=== PATIENT | female | born 1965 | race American Indian/Alaskan Native ===

== ENCOUNTER 2018-07-18 20:35 | Inpatient (IN) | payer BC ==
[2018-07-18 20:47] VITALS: BMI 36.3
[2018-07-18 21:31] LABS: BASO # 0.03 K/mm3 (0.0-2.0); BASO % 0.6 % (0.0-3.0); EOS # 0.2 (0.0-0.7); EOS % 3.4 % (1.5-5.0); HEMOGLOBIN 13.3 g/dL (12.0-16.0); LYMPH % 41.9 % (22.0-35.0); MEAN CELL VOLUME 95.9 fl (80.0-105.0); MEAN CORPUSCULAR HGB CONC 33.4 g/dl (31.0-37.0); MEAN PLATELET VOLUME 10.2 fl (7.0-11.0); MONO # 0.3 (0.1-0.6); MONO % 6.9 % (1.0-6.0); RBC 4.15 10^6/uL (3.5-6.1); RED CELL DISTRIBUTION WIDTH 13.2 % (11.5-14.5); WHITE BLOOD COUNT 4.8 10^3/uL (4.5-11.0)
[2018-07-18 21:48] LABS: ALB/GLOB RATIO 1.3 (1.1-1.8); ALBUMIN 4.2 g/dL (3.0-4.8); ALT/SGPT 18 U/L (7-56); AST/SGOT 24 U/L (14-36); BLOOD UREA NITROGEN 15 mg/dL (7-21); CALCIUM 9.3 mg/dL (8.4-10.5); GFR NON-AFRICAN AMERICAN > 60
[2018-07-18] MEDS ORDERED: Morphine 4 mg/ml ISec IVP STA ×2 (21:49→23:54)
--- NOTE | 2018-07-18 23:04 | ED PDOC ---
Arrival/HPI - General Chief Complaint: Lower Extremity Problem/Injury Time Seen by Provider: 07/18/18 20:36 Historian: Patient - History of Present Illness Narrative History of Present Illness (Text): 07/18/18 23:01 52 yo F with no significant PMH, reports slipping and falling outside today 1 hr uniform force [employer], sustaining injury of the R ankle. Patient now complains of pain and swelling; can not bear weight on ankle. Otherwise: (-) knee pain, (-) other injury, (-) head injury, (-) LOC, (-) neck/back pain, (-) other extremity injury. 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 - Anesthesia Hx Anesthesia: Yes Hx Anesthesia Reactions: No Family/Social History Family/Social History: No Known Family HX Smoking Status: Never Smoked Hx Alcohol Use: No Hx Substance Use: No Allergies/Home Meds Allergies/Adverse Reactions: Allergies No Known Allergies Allergy (Verified 07/18/18 20:56) Review of Systems - Review of Systems Constitutional: absent: Fatigue, Fevers Respiratory: absent: SOB, Cough Cardiovascular: absent: Chest Pain, Palpitations Gastrointestinal: absent: Abdominal Pain, Nausea, Vomiting Genitourinary Female: absent: Dysuria, Frequency, Hematuria Musculoskeletal: Arthralgias, Joint Swelling. absent: Back Pain, Neck Pain Skin: absent: Rash, Pruritis, Skin Lesions Neurological: absent: Headache, Dizziness Physical Exam Vital Signs Temp Pulse Resp BP Pulse Ox 07/18/18 20:56 97.9 F 56 L 18 100/50 L 99 Temperature: Afebrile Blood Pressure: Normal Pulse: Regular Respiratory Rate: Normal Appearance: Positive for: Well-Appearing, Non-Toxic, Comfortable Pain Distress: Moderate Mental Status: Positive for: Alert and Oriented X 3 - Systems Exam Head: Present: Atraumatic, Normocephalic Pupils: Present: PERRL Extroacular Muscles: Present: EOMI Conjunctiva: Present: Normal Mouth: Present: Moist Mucous Membranes Neck: Present: Normal Range of Motion Respiratory/Chest: Present: Clear to Auscultation, Good Air Exchange. No: R espiratory Distress, Accessory Muscle Use Cardiovascular: Present: Regular Rate and Rhythm, Normal S1, S2. No: Murmurs Abdomen: No: Tenderness, Distention, Peritoneal Signs Back: Present: Normal Inspection Upper Extremity: Present: Normal Inspection. No: Cyanosis, Edema Lower Extremity: Present: NORMAL PULSES, Tenderness (R ankle : +moderate tenderness and edema with limited ROM secondary to pain, (-) tenderness to the achilles tendon. R foot : (-) tenderness or swelling.), Neurovascularly Intact, Capillary Refill < 2 s Neurological: Present: GCS=15, CN II-XII Intact, Speech Normal, Motor Func Grossly Intact, Normal Sensory Function Skin: Present: Warm, Dry, Normal Color. No: Rashes Psychiatric: Present: Alert, Oriented x 3, Normal Insight, Normal Concentration Medical Decision Making ED Course and Treatment: 07/18/18 23:04 Plan : - XR R ankle and foot - IV - Labs - toradol IV XR R ankle / R foot : +trimalleolar fracture, no dislocation, as read by [facility]IA. EKG : NSR at 62 bpm, no acute ST changes, as read by SAMIA CXR : NAD, as read by PA Patient still c/o pain, she returned from XR. Morphine IV and zofran IV given. X-ray results discussed with the patient in great detail. Orthoglass posterior short leg and sugra tong splint applied by SAMIA. Neurovascular intact post splint application. Patient states that she has seen Dr. Gonzalez in the past and is requesting that he be consulted for ortho. Case d/w Dr. Gonzalez, request that the patient be admitted and he will plan to take the patient to the OR in the AM. He request that the patient be admitted under the medical service so that she maybe medically cleared. Case d/w Dr. Vail, agrees with plan to admit. Bridge orders and consults placed. Patient notified of needs for admission and possible OR tomorrow, which she agrees to. She states that she agrees with the plan and for further care. I have given the patient opportunity to ask any additional questions. - Lab Interpretations Lab Results: Total Bilirubin 0.3 mg/dL (0.2-1.3) 07/18/18 21:25 AST 24 U/L (14-36) 07/18/18 21:25 ALT 18 U/L (7-56) 07/18/18 21:25 Alkaline Phosphatase 71 U/L (38-126) 07/18/18 21:25 Total Protein 7.3 g/dL (5.8-8.3) 07/18/18 21:25 Albumin 4.2 g/dL (3.0-4.8) 07/18/18 21:25 Globulin 3.1 gm/dL 07/18/18 21:25 Albumin/Globulin Ratio 1.3 (1.1-1.8) 07/18/18 21:25 - RAD Interpretation Radiology Orders: 07/18/18 21:15 ANKLE RIGHT 3 VIEWS ROUTINE [RAD] Stat FOOT RIGHT 3 VIEWS ROUTINE [RAD] Stat 07/18/18 22:25 CHEST PORTABLE [RAD] Stat - Medication Orders Current Medication Orders: Discontinued Medications Ketorolac Tromethamine (Toradol) 30 mg IVP STAT STA Stop: 07/18/18 21:16 Last Admin: 07/18/18 21:26 Dose: 30 mg MAR Pain Assessment Document 07/18/18 21:26 (Rec: 07/18/18 21:29 [facility]-[email or web address]) Pain Reassessment Is this a pain reassessment? No Sleep Is patient sleeping during reassessment? No Presence of Pain Presence of Pain Yes Pain Scale Used Protocol: [facility] Pain Scale Used Numeric Location Left, Right or Bilateral Right Pain Location Body Site Ankle Description Description Constant Intensity of Pain at present 10 IVP Administration Document 07/18/18 21:26 RC (Rec: 07/18/18 21:29 [facility]-[email or web address]) Charges for Administration # of IVP Administrations 1 Morphine Sulfate (Morphine) 4 mg IVP STAT STA Stop: 07/18/18 21:50 Last Admin: 07/18/18 21:58 Dose: 4 mg MAR Pain Assessment Document 07/18/18 21:58 RC (Rec: 07/18/18 22:04 [facility]-20) Pain Reassessment Is this a pain reassessment? No Sleep Is patient sleeping during reassessment? No Presence of Pain Presence of Pain Yes Pain Scale Used Protocol: [facility] Pain Scale Used Numeric Location Left, Right or Bilateral Right Description Description Constant Intensity of Pain at present 9 Acceptable Level of Pain 3 Pain Behavior Crying Aggravating Factors Changing Position IVP Administration Document 07/18/18 21:58 RC (Rec: 07/18/18 22:04 [facility]-20) Charges for Administration # of IVP Administrations 1 Ondansetron HCl (Zofran Inj) 4 mg IVP STAT STA Stop: 07/18/18 21:50 Last Admin: 07/18/18 21:58 Dose: 4 mg IVP Administration Document 07/18/18 21:58 (Rec: 07/18/18 21:58 [facility]-[email or web address]) Charges for Administration # of IVP Administrations 1 - PA / SHIPPING/RECEIVING MANAGER / Resident Statement MD/DO has reviewed & agrees with the documentation as recorded. Disposition/Present on Arrival - Present on Arrival Any Indicators Present on Arrival: No History of DVT/PE: No History of Uncontrolled Diabetes: No Urinary Catheter: No History of Decub. Ulcer: No History Surgical Site Infection Following: None - Disposition Have Diagnosis and Disposition been Completed?: Yes Diagnosis: Trimalleolar fracture of right ankle Disposition: HOSPITALIZED Disposition Time: 22:30 Patient Plan: Admission Patient Problems: Current Active Problems Problem Status Onset Trimalleolar fracture of right ankle Acute Condition: STABLE
[2018-07-18 23:55] LABS: INR 1.08; PARTIAL THROMBOPLASTIN TIME 34.2 Seconds (26.9-38.3)
[2018-07-19] MEDS ORDERED: Pneumococcal 23-Valent Vaccine IM ONE (00:57)
[2018-07-19] MEDS ORDERED: Influenza Vaccine 60 mcg/0.5 mL SYR (4YR UP) IM ONE (00:57)
[2018-07-19] MEDS: Dextrose 5%/0.45% NS 1,000 ML IV SCH ×3 (01:38→20:03)
[2018-07-19] MEDS: Oxycodone/Acetaminophen 5/325 mg Tab PO PRN (02:19)
[2018-07-19] MEDS ORDERED: HYDROmorphone 1 mg/ml ISec SC PRN (07:07)
[2018-07-19] MEDS ORDERED: HYDROmorphone 1 mg/ml ISec IVP STA (07:30)
[2018-07-19] MEDS ORDERED: HYDROmorphone 0.5 mg/0.5 ml ISec IVP PRN (08:19)
--- NOTE | 2018-07-19 08:54 | RAD ---
Date of service: 07/18/2018 HISTORY: for OR COMPARISON: No prior. FINDINGS: LUNGS: No active pulmonary disease. PLEURA: No significant pleural effusion identified, no pneumothorax apparent. CARDIOVASCULAR: No aortic atherosclerotic calcification present. Normal cardiac size. No pulmonary vascular congestion. OSSEOUS STRUCTURES: No significant abnormalities. VISUALIZED UPPER ABDOMEN: Normal. OTHER FINDINGS: None. IMPRESSION: No active disease.
--- NOTE | 2018-07-19 09:37 | RAD ---
Date of service: 07/18/2018 PROCEDURE: Right Foot Radiographs. HISTORY: pain COMPARISON: None. FINDINGS: BONES: Fracture medial malleolus. Fracture distal fibula. See radiographs right ankle. No other fracture identified. JOINTS: Normal. SOFT TISSUES: Normal. OTHER FINDINGS: None. IMPRESSION: Fracture medial malleolus and distal fibula. No additional fracture.
--- NOTE | 2018-07-19 09:38 | RAD ---
Date of service: 07/18/2018 PROCEDURE: Right Ankle Radiographs. HISTORY: pain COMPARISON: None available. FINDINGS: BONES: Minimally displaced oblique fracture distal fibula at the level of the plafond. Minimally displaced medial malleolar fracture. No other fracture identified. JOINTS: The talar dome is smooth. There is mild widening of the ankle mortise. This may indicate tibial fibular ligamentous disruption. SOFT TISSUES: Circumferential soft tissue swelling is noted. OTHER FINDINGS: None. IMPRESSION: Fracture medial malleolus and distal fibula. Mild widening of ankle mortise.
[2018-07-19] MEDS: Levothyroxine 50 MCG TAB PO SCH (10:00)
[2018-07-19] MEDS ORDERED: Ergocalciferol 50,000 Intl Units Cap PO SCH (10:00)
--- NOTE | 2018-07-19 10:41 | CARD ---
APPROVED REPORT Date of service: 07/18/2018 EKG Measurement Heart [id number] <Conclusion> Normal sinus rhythm Normal ECG
[2018-07-19 10:42] VITALS: RESP 18
[2018-07-19] MEDS ORDERED: Bupivacaine 0.5% 50 ML IJ ONE (10:54)
[2018-07-19] MEDS ORDERED: Succinylcholine 200 mg/10 ml Inj IV ONE (10:58)
[2018-07-19] MEDS ORDERED: Propofol 10 mg/ml Inj (20 ML) ONE (10:58)
[2018-07-19] MEDS ORDERED: Midazolam 2 MG/2 ML VIAL ONE (10:59)
[2018-07-19] MEDS ORDERED: Sevoflurane - Inhalation Anesthetic Liq (250 ml) ONE (11:00)
[2018-07-19] MEDS ORDERED: Desflurane Inhalation Anesthetic Liq (240 ml) ONE (11:00)
[2018-07-19] MEDS ORDERED: Rocuronium 10 mg/ml (5 ml) ONE (11:40)
--- NOTE | 2018-07-19 11:40 | CON ---
DATE: 07/19/2018 ORTHOPEDIC CONSULT REPORT LOCATION: The patient is a 52-year-old female, in room 566, bed 1. HISTORY OF PRESENT ILLNESS: She was admitted last night 07/18/2018, today's date is 07/19/2018, for slipped on the ice and sustained a displaced bimalleolar fracture right ankle, will need surgical treatment for ORIF, put a plate on the fibula and screws in the medial malleolus. The wound is closed, we are going to try to do the surgery today and the patient con go home in a couple of days with the walker and not put weight on for 6 weeks. FINAL DIAGNOSES: Displaced bimalleolar fracture right ankle and told of_ risks and benefit of surgery. Ming Gonzalez DO MTDD
[2018-07-19 12:03] LABS: URINE BILIRUBIN NEGATIVE (NEGATIVE); URINE BLOOD NEGATIVE (NEGATIVE); URINE GLUCOSE (UA) NEGATIVE (NEGATIVE); URINE LEUKOCYTE ESTERASE NEGATIVE Leu/uL (NEGATIVE); URINE PROTEIN TRACE mg/dL (<30 mg/dL); URINE UROBILINOGEN 0.2 E.U./dL (<1 E.U./dL)
[2018-07-19] MEDS ORDERED: Neostigmine Methylsulfate 3mg/3ml Syringe IV ONE ×2 (12:08→12:12)
[2018-07-19 12:13] LABS: URINE APPEARANCE CLEAR (CLEAR); URINE COLOR YELLOW (YELLOW)
[2018-07-19 12:18] LABS: URINE BACTERIA MANY /hpf; URINE RBC 0 - 2 /hpf (0-2)
[2018-07-19 12:19] LABS: URINE AMORPHOUS SEDIMENT FEW /hpf; URINE FINE GRANULAR CAST 0 - 2 /hpf; URINE HYALINE CAST 0 - 2 /hpf
[2018-07-19] MEDS ORDERED: Vancomycin 1 g Inj ONE (12:56)
[2018-07-19] MEDS ORDERED: HYDROmorphone 1 mg/ml ISec IVP PRN (13:23)
[2018-07-19] MEDS ORDERED: Lactated Ringer's 1,000 ML IV SCH (13:30)
[2018-07-19] MEDS ORDERED: Esmolol 100 mg/10ml Inj IV ONE (14:19)
[2018-07-19] MEDS ORDERED: Oxycodone/Acetaminophen 5/325 mg Tab PO PRN (15:07)
[2018-07-19] MEDS ORDERED: HYDROmorphone 1 mg/ml ISec IVP ONE ×4 (15:25→16:10)
[2018-07-19] MEDS ORDERED: HYDROmorphone 1 mg/ml ISec ONE ×3 (15:41→16:07)
--- NOTE | 2018-07-19 16:26 | RAD ---
Date of service: 07/19/2018 PROCEDURE: Fluoroscopy up to 1 hr HISTORY: O.R.I.F. OF RIGHT ANKLE FX. COMPARISON: TECHNIQUE: 76.3 sec fluoro time. Cumulative dose 6.72 mGy. Five images were submitted FINDINGS: There has been internal fixation of the trimalleolar fracture. There is anatomic alignment IMPRESSION: As above
[2018-07-19 19:42] LABS: IRON 92 ug/dL (45-180)
[2018-07-19 19:43] LABS: HDL CHOLESTEROL 45 mg/dL (29-60)
[2018-07-19 19:52] LABS: % IRON SATURATION 29 % (20-55); TOTAL IRON BINDING CAPACITY 320 ug/dL (265-497)
[2018-07-19 19:53] LABS: LDL CHOLESTEROL 134 mg/dL (0-129)
--- NOTE | 2018-07-19 20:44 | CP.PCM.PN ---
<Fatoumata Enriquez - Last Filed: 07/19/18 20:47> Subjective - Date & Time of Evaluation Date of Evaluation: 07/19/18 Time of Evaluation: 20:41 - Subjective Subjective: PGY1 House Doctor: Patient here for Trimalleolar fracture of right ankle; s/p Right ankle ORIF POD- [address] Gonzalez. EKG QTc = 442. Per nurse, Patient was complaining of nausea, but per Nurse, there is no PRN zofran ordered. Ordered zofran 4mg IVP stat x 1 dose. Objective - Vital Signs/Intake and Output Vital Signs (last 24 hours): Temp Pulse Resp BP Pulse Ox 97.6 F 77 18 153/76 H 96 07/19/18 16:32 07/19/18 16:32 07/19/18 16:32 07/19/18 16:32 07/19/18 16:32 Intake and Output: 07/19/18 07/20/18 18:59 06:59 Intake Total 0 Balance 0 - Medications Medications: Current Medications Acetaminophen (Tylenol 325mg Tab) 650 mg PO Q4H PRN PRN Reason: Fever >100.4 F Aspirin (Ecotrin) 81 mg PO DAILY [facility], [facility]1983 Ergocalciferol (Drisdol 50,000 Intl Units Cap) 1 cap PO QWK [facility]1983 Last Admin: 07/19/18 10:00 Dose: Not Given Famotidine (Pepcid) 40 mg PO HS [facility]1983 Hydromorphone HCl (Dilaudid) 0.5 mg IVP Q4H PRN PRN Reason: Pain, Mild (1-3) Hydromorphone HCl (Dilaudid) 1 mg IVP Q4H PRN PRN Reason: Pain, severe (8-10) Dextrose/Sodium Chloride (Dextrose 5%/0.45% Ns 1000 Ml) 1,000 mls @ 100 mls/hr IV .Q10H [facility]1983 Last Admin: 07/19/18 20:03 Dose: 100 mls/hr Levothyroxine Sodium (Synthroid) 50 mcg PO ACB [facility]1983 Last Admin: 07/19/18 10:00 Dose: Not Given Ondansetron HCl (Zofran Inj) 4 mg IVP ONCE PRN PRN Reason: Nausea/Vomiting Ondansetron HCl (Zofran Inj) 4 mg IVP STAT STA Stop: 07/19/18 20:41 Oxycodone/Acetaminophen (Percocet 5/325 Mg Tab) 1 tab PO Q4H PRN PRN Reason: Pain, moderate (4-7) Stop: 07/22/18 01:25 Last Admin: 07/19/18 02:19 Dose: 1 tab Oxycodone/Acetaminophen (Percocet 5/325 Mg Tab) 2 tab PO Q4H PRN PRN Reason: Pain, moderate (4-7) Stop: 07/22/18 15:08 - Labs Labs: 07/18/18 21:25 07/18/18 21:25 PT 12.0 SECONDS (9.4-12.5) 07/18/18 23:31 INR 1.08 07/18/18 23:31 APTT 34.2 Seconds (26.9-38.3) 07/18/18 23:31 <Renuka Santana - Last Filed: 07/20/18 06:10> Objective - Vital Signs/Intake and Output Vital Signs (last 24 hours): Temp Pulse Resp BP Pulse Ox 97.6 F 77 18 153/76 H 96 07/19/18 16:32 07/19/18 16:32 07/19/18 16:32 07/19/18 16:32 07/19/18 16:32 Intake and Output: 07/19/18 07/20/18 18:59 06:59 Intake Total 0 480 Output Total 600 Balance 0 -120 - Medications Medications: Current Medications Acetaminophen (Tylenol 325mg Tab) 650 mg PO Q4H PRN PRN Reason: Fever >100.4 F Aspirin (Ecotrin) 81 mg PO DAILY [facility], [facility]1983 Ergocalciferol (Drisdol 50,000 Intl Units Cap) 1 cap PO QWK [facility]1983 Last Admin: 07/19/18 10:00 Dose: Not Given Famotidine (Pepcid) 40 mg PO HS [facility] Last Admin: 07/19/18 21:34 Dose: Not Given Hydromorphone HCl (Dilaudid) 0.5 mg IVP Q4H PRN PRN Reason: Pain, Mild (1-3) Hydromorphone HCl (Dilaudid) 1 mg IVP Q4H PRN PRN Reason: Pain, severe (8-10) Last Admin: 07/20/18 05:47 Dose: 1 mg Dextrose/Sodium Chloride (Dextrose 5%/0.45% Ns 1000 Ml) 1,000 mls @ 100 mls/hr IV .Q10H MELANIE Last Admin: 07/20/18 05:46 Dose: 100 mls/hr Levothyroxine Sodium (Synthroid) 50 mcg PO ACB MELANIE Last Admin: 07/19/18 10:00 Dose: Not Given Ondansetron HCl (Zofran Inj) 4 mg IVP ONCE PRN PRN Reason: Nausea/Vomiting Oxycodone/Acetaminophen (Percocet 5/325 Mg Tab) 1 tab PO Q4H PRN PRN Reason: Pain, moderate (4-7) Stop: 07/22/18 01:25 Last Admin: 07/19/18 02:19 Dose: 1 tab Oxycodone/Acetaminophen (Percocet 5/325 Mg Tab) 2 tab PO Q4H PRN PRN Reason: Pain, moderate (4-7) Stop: 07/22/18 15:08 - Labs Labs: 07/18/18 21:25 07/18/18 21:25 PT 12.0 SECONDS (9.4-12.5) 07/18/18 23:31 INR 1.08 07/18/18 23:31 APTT 34.2 Seconds (26.9-38.3) 07/18/18 23:31 Attending/Attestation - Attestation I have personally seen and examined this patient.: No I have fully participated in the care of the patient.: No I have reviewed all pertinent clinical information, including history, physical exam and plan: No
[2018-07-19] MEDS: HYDROmorphone 1 mg/ml ISec IVP PRN (23:18)
[2018-07-20] MEDS ORDERED: POLYETHYLENE GLYCOL 3350 17 GM/Dose PACKET PO ONE (00:04)
[2018-07-20] MEDS: Dextrose 5%/0.45% NS 1,000 ML IV SCH (05:46)
[2018-07-20] MEDS: HYDROmorphone 1 mg/ml ISec IVP PRN ×2 (05:47→10:07)
[2018-07-20 07:08] LABS: HEMOGLOBIN 12.1 g/dL (12.0-16.0); MEAN CELL VOLUME 95.6 fl (80.0-105.0); MEAN CORPUSCULAR HEMOGLOBIN 31.4 pg (25.0-35.0); MEAN CORPUSCULAR HGB CONC 32.9 g/dl (31.0-37.0); MEAN PLATELET VOLUME 9.6 fl (7.0-11.0); RBC 3.85 10^6/uL (3.5-6.1); RED CELL DISTRIBUTION WIDTH 13.1 % (11.5-14.5); WHITE BLOOD COUNT 9.8 10^3/uL (4.5-11.0)
[2018-07-20 07:13] LABS: BLOOD UREA NITROGEN 12 mg/dL (7-21); CALCIUM 8.8 mg/dL (8.4-10.5); GFR NON-AFRICAN AMERICAN > 60
--- NOTE | 2018-07-20 07:36 | OP ---
PROCEDURE DATE: 07/19/2018 PREOPERATIVE DIAGNOSES: Fracture dislocation of right ankle, bimalleolar type with short oblique fracture of lateral malleolus and fracture of medial malleolus above the profound, talus subluxed laterally. POSTOPERATIVE DIAGNOSES: Fracture dislocation of right ankle, bimalleolar type with short oblique fracture of lateral malleolus and fracture of medial malleolus above the profound, talus subluxed laterally. PROCEDURES: Open reduction and internal fixation with Biomet 7-hole fibular plate and two cannulated screws of medial malleolus. ANESTHESIA: General with endotracheal tube. DESCRIPTION OF PROCEDURE: Summary is as follows: The patient was taken to the OR. The right ankle was prepped and draped in sterile fashion. With the help of the x-ray, we made a lateral incision of the fibula about 5 inches. Deep knife was used to go through the subcutaneous tissue. The bone was exposed, removing the periosteum laterally, then holding it reduced with a K-wire, and putting it 7 hole plate over the fracture with three screws below the fracture or above the fracture, and one of the screws passed was a lag screw. This held the fracture reduced laterally. Then, we turned our attention to the medial malleolus, which was highly comminuted. Bone was displaced due to open reduction with medial incision and posterior extension and visualized in the posterior tibial tendon and holding it reduced with K-wires in a clamp and put two cannulated screws in, 45 and 40 mm long. X-ray showed good position of the medial and lateral malleolus, and the mortise was stable. The patient's wound was then closed in layers and 0 Vicryl deep layer, fascia with 2-0 Vicryl subcutaneous tissue with a combination of stainless steel dillon and nylon. The patient was taken to the recovery room in good condition with posterior splints. Ming Gonzalez DO
--- NOTE | 2018-07-20 08:17 | HP ---
DATE OF EXAM: 07/19/2018 The patient was seen and examined at the bedside on 07/19/2018. CHIEF COMPLAINT: Right foot pain. HISTORY OF PRESENT ILLNESS: Ms. Piña is a 52-year-old lady with no significant past medical history. Reports sleeping and falling outside 1 hour before coming to emergency room, sustained injury of the right ankle. The patient complaining of pain and swelling, cannot bear weight on ankle. Otherwise, no hematuria. No hematochezia. No headache. No dizziness. No chest pain. No palpitation. The patient's primary care is Dr. Ortega and the patient is having history of hypothyroidism. PAST MEDICAL HISTORY: Hypothyroidism, menopause, history of thyroid surgery, and tumor removed from the thyroid. FAMILY HISTORY: Father and mother noncontributory. HABITS: No smoking. No drugs. No ethanol. ALLERGIES: THE PATIENT IS NOT ALLERGIC WITH ANY MEDICATIONS. REVIEW OF SYSTEMS: The patient was seen and examined at the bedside in her room, having Chris bandage wrapped around the foot. No fatigue. No fever. No shortness of breath. No chest pain. No palpitation. No abdominal pain. No nausea, vomiting, or diarrhea. No dysuria, frequency, or hematuria. No arthralgia except that foot is swollen. Range of motion is 0. No neck pain. No rash. No pruritus. No headache. No dizziness. PHYSICAL EXAMINATION: VITAL SIGNS: Temperature 97.9, pulse 56, respiratory rate 18, blood pressure 100/50, and pulse oximetry 99%. HEENT: Head; normocephalic and atraumatic. Eyes; PERRLA. Extraocular muscles intact. Conjunctivae clear. Nose patent. Mucous membranes moist. NECK: Supple. No carotid bruits. No JVD. No thyromegaly. CHEST: Bilaterally symmetrical. HEART: S1 and S2 positive. LUNGS: Clear to auscultation. ABDOMEN: Soft. Bowel sounds positive. No organomegaly. EXTREMITIES: Upper extremity, no edema and no cyanosis. Lower extremity; right ankle tender, edema with limited range of motion secondary to pain. NEUROLOGIC: The patient is awake, alert, and follows simple commands. LABORATORY DATA: White blood cells 4.8, hemoglobin 13.3, hematocrit 39.8, and platelets 287. Sodium 139, potassium 4.9, BUN 15, and creatinine 0.6. Liver function test within normal limits. ASSESSMENT AND PLAN: Ms. Piña is a 52-year-old female with history of hypothyroidism. She slipped on the ice and sustained displaced bimalleolar fracture of right foot. Lisa will do surgery. Need open reduction and internal fixation, put a plate on fibula in the medial malleolus. Actually, Dr. Gonzalez did the surgery. Wound is closed. After that, we will try to give the patient physical therapy, so final diagnosis is displaced bimalleolar fracture right ankle, hypothyroidism, and obesity. Giving pain medication. Getting Zofran for nauseousness, levothyroxine for hypothyroidism, and famotidine for gastrointestinal prophylaxis. I will repeat labs. Discussion done with the patient. We will follow up. Nahomy Pichardo MD
[2018-07-20] MEDS: Levothyroxine 50 MCG TAB PO SCH (10:04)
[2018-07-20 10:31] VITALS: BP 129/72; PULSE 102; TEMP 97.2; O2SAT 98
[2018-07-20] MEDS: Oxycodone/Acetaminophen 5/325 mg Tab PO PRN (12:50)
--- NOTE | 2018-07-20 22:11 | DS ---
LOCATION: The patient is a 52-year-old female, in room 566, bed 1. HOSPITAL COURSE: She underwent open reduction and internal fixation, had a comminuted medial and lateral malleolar fracture yesterday. She did well . She is presently in a cast with moderate pain, given prescripts for Percocet, I could send her home today with walker and I will see her in the office in 2 weeks. FINAL DIAGNOSES: Fracture and dislocation right ankle medial and lateral malleolus and had open reduction and internal fixation on 07/19/2018 of the right ankle. Ming Gonzalez DO
--- NOTE | 2018-07-21 20:29 | DS ---
The patient was seen and examined at the bedside on 07/20/2018. This discharge summary is for 07/20/2018. CHIEF COMPLAINT: Foot pain. HISTORY OF PRESENT ILLNESS: Ms. Xander Piña is a 52-year-old lady with known significant past medical history slipped and fell outside 1 hour ago before the day of admission, sustained injury of the right ankle. The patient came to emergency room with swelling of the ankle and pain, cannot bear weight on the ankle. No fever. No chills. No hematuria. No hematochezia. No headache. No dizziness. No chest pain. No palpitation. We did at the level of the foot, ankle. Seen by Dr. Gonzalez, did surgery and cleared the patient for discharge. We discharged the patient on 07/20/2018. Followup Dr. Gonzalez and in my office. PAST MEDICAL HISTORY: Hypothyroidism and tumor removed from the thyroid. FAMILY HISTORY: Father and mother noncontributory. HABITS: Never smoked. No drug. No ethanol. ALLERGIES: THIS PATIENT IS NOT ALLERGIC WITH ANY MEDICATION. REVIEW OF SYSTEMS: The patient was seen and examined at the bedside. Looking comfortable. No fever. No chills. No hematuria. No hematochezia. No headache. No dizziness. No chest pain. No palpitation. PHYSICAL EXAMINATION: VITAL SIGNS: Temperature 97.2, pulse 102, blood pressure 129/72 and respiratory rate 18. HEENT: Head is normocephalic and atraumatic. Eyes; PERRLA. Extraocular muscles intact. Conjunctiva clear. Nose patent. Mucous membrane moist. NECK: Supple. No carotid bruits. No JVD. No thyromegaly. CHEST: Bilaterally symmetrical. HEART: S1 and S2, positive. LUNGS: Clear to auscultation. ABDOMEN: Soft. Bowel sounds present. No organomegaly. EXTREMITIES: No edema. No cyanosis except right ankle. NEUROLOGIC: The patient is awake and alert. Follows simple commands. MEDICATIONS: Normal saline given. Dilaudid given. Vitamin D, Ecotrin, Pepcid, levothyroxine. LABORATORY DATA: White blood cell 9.8, hemoglobin 12.1, hematocrit 36.8 and platelets 252. Sodium 136, potassium 4.4, BUN 12, creatinine 0.5 and glucose 110. ASSESSMENT AND PLAN: Ms. Xander Piña is a 52-year-old lady with history of hypothyroidism on levothyroxine, hypercholesteremia, B12 deficiency, hypertriglyceridemia, status post fall, has fracture of the right ankle. Dr. Gonzalez did open reduction and internal fixation, had comminuted medial and lateral malleolar fracture. Procedure went very well. Cast was put with moderate pain. Dr. Gonzalez gave Percocet to the patient, wants to see the patient after two weeks. So, the patient has fracture of the right ankle medial and lateral malleolus and underwent open reduction, hypertension. Gastrointestinal and deep venous thrombosis prophylaxis given as orthopedically the patient is discharged. The patient is to follow up with orthopedic and primary care physician. Percocet given by the orthopedic. Repeat labs. We will follow up. Nahomy Pichardo MD MTDD
== END 2018-07-20 14:48 | disposition home or self-care (01) | DRG 494 ==
LOC: ED 20:35 → ERH 22:52 → 5RNO 07-19 00:16
PROVIDERS: ADMIT Internal Medicine; ATTEND Internal Medicine
PROC: 0QSG04Z Reposition Right Tibia with Internal Fixation Device, Open Approach (ICD-10-PCS; 2018-07-19)
PROC: 0QSJ04Z Reposition Right Fibula with Internal Fixation Device, Open Approach (ICD-10-PCS; principal; 2018-07-19 11:00)
DX: S82.841A Displaced bimalleolar fracture of right lower leg, initial encounter for closed fracture (principal); S93.01XA Subluxation of right ankle joint, initial encounter; E03.9 Hypothyroidism, unspecified; W00.0XXA Fall on same level due to ice and snow, initial encounter; E66.9 Obesity, unspecified; Z68.36 Body mass index [BMI] 36.0-36.9, adult